=== PATIENT | female | born 1975 | race Caucasian/White ===

== ENCOUNTER 2016-06-04 19:26 | Emergency (ER) | payer OTHER ==
[2016-06-04] MEDS ORDERED: IOPAMIDOL 370 (76%) IV.SOLN 150 ML IV ONE (19:27)
[2016-06-04] MEDS ORDERED: PROMETHAZINE HCL 25 MG/ML VIAL ONE (20:50)
[2016-06-04] MEDS ORDERED: DIPHENHYDRAMINE HCL 50 MG/1 ML VIAL ONE (20:50)
[2016-06-04] MEDS ORDERED: LACTATED RINGERS 1,000 ML ONE (20:50)
[2016-06-04 21:21] LABS: ABSOLUTE NEUTROPHIL COUNT 6.8 K/mm3 (1.8-7.7); BASO % 0.4 % (0.2-1.0); EOS # 0.2 (0.0-0.5); EOS % 1.5 % (0.9-2.9); HEMOGLOBIN 14.3 gm/l (12.0-16.0); IMM NEUT% 0.3 % (0-1); LYMPH # 2.8 (1.0-4.8); LYMPH % 26.5 % (15-45); MEAN CELL VOLUME 86.8 fl (81.0-99.0); MEAN CORPUSCULAR HEMOGLOBIN 29.5 pg (27.0-31.0); MEAN PLATELET VOLUME 9.5 fl (7.4-10.4); MONO # 0.8 (0.0-0.8); MONO % 7.8 % (4-12); NEUT % 63.5 % (43-75); PLATELET COUNT 309 K/mm3 (130-400); RED CELL DISTRIBUTION WIDTH 12.2 % (11.5-14.5)
[2016-06-04 21:35] LABS: ALB/GLOB RATIO 1.3 (>1.0); CALCIUM 9.2 mg/dL (8.6-10.3)
[2016-06-04] MEDS ORDERED: FENTANYL 100 MCG/2 ML VIAL ONE (22:36)
[2016-06-04] MEDS ORDERED: ASPIRIN CHEWTAB 81 MG TABLET ONE (22:36)
[2016-06-04 23:30] LABS: SPECIFIC GRAVITY 1.025 (1.001-1.030); URINE BILIRUBIN NEGATIVE (NEGATIVE); URINE BLOOD TRACE (NEGATIVE); URINE GLUCOSE (UA) NEGATIVE (NEGATIVE); URINE LEUKOCYTE ESTERASE 1+ (NEGATIVE); URINE NITRITE NEGATIVE (NEGATIVE); URINE PROTEIN TRACE (NEGATIVE); URINE UROBILINOGEN NORMAL (0-1 mg/dl)
[2016-06-04 23:35] LABS: URINE APPEARANCE CLEAR; URINE COLOR YELLOW
[2016-06-04 23:44] LABS: URINE BACTERIA 1+; URINE EPITHELIAL CELLS MODERATE /hpf; URINE MUCUS 1+; URINE RBC 0-1 /hpf
[2016-06-04 23:46] LABS: AMPHETAMINES/METHAMPHETAMINES NEGATIVE (NEGATIVE); COCAINE NEGATIVE (NEGATIVE); MARIJUANA NEGATIVE (NEGATIVE); METHADONE NEGATIVE (NEGATIVE); OPIATES NEGATIVE (NEGATIVE); TRICYCLIC ANTIDEPRESSANTS NEGATIVE (NEGATIVE)
--- NOTE | 2016-06-05 07:31 | CT ---
HEAD W/O CON History: Headache. Comparison: None. Procedure: 1 mm axial images were obtained through the head from the vertex to the base of the skull without intravenous contrast. Stacked reconstructed 5 mm images were then obtained in the axial, coronal and sagittal planes. Findings: Images demonstrate a normal appearance of the ventricular size. No evidence of midline shift is seen. No mass or mass effect is identified. No evidence of intra or extra-axial fluid collections or hemorrhage is visualized. There is an area of developing low-attenuation within the left occipital region with loss of the hollins/white matter junction suggestive of a subacute area of infarction. The basilar cisterns remain uneffaced. The posterior fossa structures are unremarkable though there is an area of encephalomalacia within the right cerebellar hemisphere. No discrete osseous abnormalities are observed. Impression: 1. No findings of acute intracranial hemorrhage. 2. An area of low-attenuation with loss of the hollins/white matter differentiation within the left occipital lobe suggestive of a subacute region of infarction. 3. 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 4. Pansinus disease. The findings were called to the emergency room at 2156 hours, 06/04/2016, by [facility].
--- NOTE | 2016-06-05 07:57 | CT ---
CTA HEAD W/ POST PROCESS History: Subacute left occipital infarct. Comparison: Unenhanced head CT examination of the same day. Procedure: 1 mm axial images were obtained through the head following the administration of 80cc's of Isovue-370 intravenous contrast. Stacked reconstructed 3 mm images were then photographed in the axial, coronal and sagittal planes. 3-D reconstructed MIP images were also performed on the scanner workstation. Findings: Images demonstrate little significant atherosclerotic disease involving the arterial vascular structures. The course and caliber of the intracranial carotid arteries is appropriate. There is no discrete stenosis or aneurysm visualized. The middle and anterior cerebral branches are appropriate. There is no pruning of the distal middle cerebral artery branches identified. The vertebral arteries are codominant. The basilar artery appears to be of normal caliber. No basilar tip aneurysm is seen. The posterior cerebral branches appear to be patent as far as visualized. Impression: 1. No discrete stenosis or focal aneurysm visualized. 2. Pansinus disease. The findings were called to the emergency room at 2344 hours, 06/04/2016, by [facility].
--- NOTE | 2016-06-05 08:01 | CT ---
CTA CAROTID W/ POST PROCESS History: Subacute left occipital infarct. Comparison: None. Procedure: 1 mm axial images were obtained through the neck following the administration of 80cc's of Isovue-370 intravenous contrast. Stacked reconstructed 3 mm images were then photographed in the axial, coronal and sagittal planes. 3-D reconstructed MIP images were also performed on the scanner workstation. Findings: Images demonstrate little significant atherosclerotic disease. There is no mediastinal adenopathy observed. The thyroid gland and lung apices appear to be appropriate. No significant cervical chain adenopathy is identified. The great vessel origins appear to be intact. There is a normal appearance of the left and right subclavian arteries and the brachiocephalic artery. The left common carotid artery demonstrates a normal course and caliber. The internal and extra carotid branches are widely patent. The right common carotid artery demonstrates a normal course and caliber. The internal and external carotid branches appear to be widely patent. No significant disease is visualized. The vertebral arteries are codominant and appear to be widely patent as well. Impression: 1. Little significant atherosclerotic disease with no focal stenosis visualized within the arterial system. 2. Codominant vertebral arteries. 3. Pansinus disease. The findings were called to the emergency room at 2344 hours, 06/04/2016, by [facility].
== END 2016-06-05 00:20 | disposition short-term general hospital (02) ==
LOC: ED 19:26
DX: I63.8 Other cerebral infarction (principal); R51 Headache; I10 Essential (primary) hypertension; Z86.73 Personal history of transient ischemic attack (TIA), and cerebral infarction without residual deficits; F17.200 Nicotine dependence, unspecified, uncomplicated; Z79.899 Other long term (current) drug therapy; Z79.82 Long term (current) use of aspirin; Z88.0 Allergy status to penicillin; Z88.8 Allergy status to other drugs, medicaments and biological substances
CPT/HCPCS: 85025; 80305; 80053; 81001; 70450; 70496; 70498; 96375 ×2; 99284; 96361 ×2; 96365; 99285; A9270; J1200; J3010; J2550; J7120; Q9967